=== PATIENT | female | born 1990 | race Caucasian/White ===

== ENCOUNTER 2021-08-13 20:09 | Emergency (ER) | payer MEDICAID, OTHER ==
[~2021-08-13] VITALS: Ht 167.6 cm; Wt 52.3 kg
[~2021-08-13 20:09] MED LIST: PNV11TAB PO; SERT-158 PO
[2021-08-13 20:40] LABS: BASOPHILS % (AUTO) 0.7 % (0.0-2.0); EOSINOPHILS % (AUTO) 1.3 % (1.0-6.0); HEMATOCRIT 38.6 % (36-46); LYMPHOCYTES # (AUTO) 2.7 K/uL (1.0-4.8); LYMPHOCYTES % (AUTO) 35.9 % (22.0-44.0); MEAN CORPUSCULAR HEMOGLOBIN 32.2 pg (26.0-34.0); MEAN CORPUSCULAR HGB CONC 33.6 G/dL (31.0-37.0); MEAN CORPUSCULAR VOLUME 96 fL (80-100); MONOCYTES # (AUTO) 0.6 K/uL (0.1-1.0); MONOCYTES % (AUTO) 7.8 % (2.0-9.0); NEUTROPHILS % (AUTO) 54.3 % (40.0-70.0); PLATELET COUNT (AUTO) 274 K/uL (150-450); RED BLOOD CELL COUNT(AUTO) 4.02 MIL/uL (4.00-5.20); RED CELL DISTRIBUTION WIDTH 13.5 % (11.5-14.5)
[2021-08-13 23:50] VITALS: BP 121/71
== END 2021-08-14 00:08 | disposition home or self-care (01) ==
LOC: EMS 20:19
DX: O20.0 Threatened abortion (principal); O99.511 Diseases of the respiratory system complicating pregnancy, first trimester; Z3A.08 8 weeks gestation of pregnancy
CPT/HCPCS: 76801; 76817; 84702; 85025; 86901; 99284

== ENCOUNTER 2022-06-13 17:55 | Emergency (ER) | payer MEDICAID, OTHER ==
[~2022-06-13] VITALS: Ht 167.6 cm; Wt 54.5 kg
[2022-06-13] MEDS ORDERED: ACETAMINOPHEN 325 MG TABLET PO ONE (21:15)
[2022-06-13] MEDS ORDERED: ONDANSETRON HCL 4 MG TABLET PO ONE (21:30)
[2022-06-13] MEDS ORDERED: LIDOCAINE 1% 10 ML VIAL SQ ONE (22:15)
[2022-06-13] MEDS ORDERED: PERTUSS(ACELL),DIPH,TET VAC/PF 0.5 ML SYRINGE IM. ONE (22:45)
[2022-06-13] MEDS ORDERED: BACITRACIN 0.9 GM PACKET OINTMENT TP ONE (22:45)
[2022-06-13 22:57] VITALS: BP 134/88
[2022-06-13] MEDS ORDERED: CEPH-558 PO (23:23)
[2022-06-13] MEDS ORDERED: TRAM-559 PO (23:24)
== END 2022-06-13 23:30 | disposition home or self-care (01) ==
LOC: EMS 17:57
DX: S01.511A Laceration without foreign body of lip, initial encounter (principal); J45.909 Unspecified asthma, uncomplicated; X58.XXXA Exposure to other specified factors, initial encounter; Y93.89 Activity, other specified; Y92.89 Other specified places as the place of occurrence of the external cause; Y99.8 Other external cause status
CPT/HCPCS: 99284; 90715; 90471; 12013; Q0162; J3490

== ENCOUNTER 2024-09-02 07:40 | Emergency (ER) | payer MEDICAID, OTHER ==
[~2024-09-02] VITALS: Ht 167.6 cm; Wt 54.5 kg
[~2024-09-02 07:40] MED LIST changes: +CEPH-558 PO; -PNV11TAB PO; -SERT-158 PO; +TRAM50TA5 PO
[2024-09-02 08:19] VITALS: TEMP 98.4
[2024-09-02] MEDS: IBUPROFEN 600 MG TABLET PO ONE (08:53)
[2024-09-02 09:10] VITALS: BP 124/74; PULSE 77; RESP 15; O2SAT 99
[2024-09-02] MEDS ORDERED: PERCT PO (09:36)
[2024-09-02] MEDS ORDERED: IBUP-1492 PO (09:36)
== END 2024-09-02 09:49 | disposition home or self-care (01) ==
LOC: EMS 07:40
DX: S83.91XA Sprain of unspecified site of right knee, initial encounter (principal); J45.909 Unspecified asthma, uncomplicated; W22.8XXA Striking against or struck by other objects, initial encounter; Y93.89 Activity, other specified; Y92.89 Other specified places as the place of occurrence of the external cause; Y99.8 Other external cause status
CPT/HCPCS: 29505; 99283

== ENCOUNTER 2025-03-25 06:41 | Emergency (ER) | payer OTHER ==
[~2025-03-25] VITALS: Ht 167.6 cm; Wt 63.6 kg
[~2025-03-25 06:41] MED LIST changes: +IBUP-1492 PO; +PERCT PO
[2025-03-25 06:50] VITALS: BP 102/66; PULSE 84; RESP 18; TEMP 97.7; O2SAT 100
[2025-03-25 07:40] LABS: PLATELET COUNT (AUTO) 250 K/uL (150-450); RED BLOOD CELL COUNT(AUTO) 3.45 MIL/uL (4.00-5.20); RED CELL DISTRIBUTION WIDTH 12.9 % (11.5-14.5); WHITE BLOOD COUNT (AUTO) 6.5 K/uL (4.5-11.0)
[2025-03-25 07:46] LABS: CALCIUM, TOTAL 8.7 mg/dL (8.8-10.5); CREATININE 0.50 mg/dL (0.60-1.30); GLOMERULAR FILTR. RATE CALC > 60 mL/min (>60); GLUCOSE,RANDOM 69 mg/dL (70-110); SODIUM SERUM 137 mmol/L (136-145); UREA NITROGEN, BLOOD 8 mg/dL (7-18)
[2025-03-25 07:48] LABS: APPEARANCE,URINE CLEAR (CLEAR); GLUCOSE, URINE (UA) NEGATIVE (NEGATIVE); LEUKOCYTE ESTERASE ,URINE LARGE (NEGATIVE); NITRATE,URINE NEGATIVE (NEGATIVE); OCCULT BLOOD,URINE NEGATIVE (NEGATIVE); SPECIFIC GRAVITIY, URINE 1.007 (1.003-1.030)
[2025-03-25] MEDS: ACETAMINOPHEN 325 MG TABLET PO ONE (07:51)
[2025-03-25 07:59] LABS: SQUAMOUS EPITHELIAL CELL,UR Few /LPF (None Seen)
[2025-03-25] MEDS: OxyCODONE HCL/ACETAMINOPHEN 5-325 MG TABLET PO ONE (08:05)
[2025-03-25 08:15] LABS: HCG,QUANTITATIVE 11656 mIU/mL (0-6)
[2025-03-25] MEDS ORDERED: CEPH-558 PO (09:46)
[2025-03-25] MEDS: CEPHALEXIN MONOHYDRATE 500 MG CAPSULE PO ONE (10:00)
== END 2025-03-25 10:03 | disposition home or self-care (01) ==
LOC: EMS 06:41
DX: O23.42 Unspecified infection of urinary tract in pregnancy, second trimester (principal); R10.A2 Flank pain, left side; O99.512 Diseases of the respiratory system complicating pregnancy, second trimester; N89.8 Other specified noninflammatory disorders of vagina; J45.909 Unspecified asthma, uncomplicated; Z79.899 Other long term (current) drug therapy; Z3A.20 20 weeks gestation of pregnancy
CPT/HCPCS: 76805; 80048; 81001; 83690; 84702; 85025; 87086; 99284